=== PATIENT | female | born 1955 | race Caucasian/White ===

== ENCOUNTER 2023-07-03 07:40 | Observation (INO) ==
[2023-07-03] MEDS ORDERED: ASPIRIN CHEWABLE PO STA (07:46)
[2023-07-03] MEDS ORDERED: MYLANTA SUSP PO ONE (07:50)
[2023-07-03] MEDS ORDERED: MORPHINE 2 MG/ML SYRINGE IVP ONE (07:50)
[2023-07-03] MEDS ORDERED: PROTONIX IV IVP STA (07:50)
[2023-07-03] MEDS ORDERED: HYDRALAZINE HCL IVP STA (07:52)
[2023-07-03] MEDS ORDERED: ZOFRAN 4 MG/2 ML IVP ONE (08:01)
[2023-07-03 08:05] LABS: BASOPHILS % (AUTO) 0.3 % (0.0-3.0); EOSINOPHILS # (AUTO) 0.1 K/ul (0.0-0.7); HEMATOCRIT 36.4 % (37.0-47.0); HEMOGLOBIN 10.9 g/dl (12.0-16.0); IMMATURE GRANULOCYTE % (AUTO) 0.3 % (0.0-5.0); LYMPHOCYTES # (AUTO) 0.9 K/uL (0.60-3.4); LYMPHOCYTES % (AUTO) 14.6 (10.0-50.0); MEAN CORPUSCULAR HEMOGLOBIN 25.5 pg (27.0-31.0); MEAN CORPUSCULAR HGB CONC 29.9 (31.8-35.4); MEAN CORPUSCULAR VOLUME 85.2 fl (81.0-99.0); MONOCYTES # (AUTO) 0.5 K/uL (0.4-2.0); MONOCYTES % (AUTO) 7.7 (0-10); NEUTROPHILS # (AUTO) 4.8 K/ul (2.0-6.9); NEUTROPHILS % (AUTO) 76.1 % (42.2-75.2); PLATELET COUNT 376 10^3/uL (140-440); RDW COEFFICIENT OF VARIATION 14.6 % (11.6-14.8); RED BLOOD COUNT 4.27 10^6/ul (4.20-5.40); WHITE BLOOD COUNT 6.24 K/ul (4.6-10.2)
--- NOTE | 2023-07-03 08:06 | DI ---
EXAM: SINGLE, PORTABLE AP VIEW(S) CHEST. HISTORY: Chest pain. COMPARISON: 05/12/2023 TECHNIQUE: Single, portable AP view(s) of the chest. FINDINGS: Lungs: The lung voulmes are normal.The lungs are clear without consolidation or effusion. Calcified g ranuloma in the left base. There is no pneumothorax. Cardiovascular: The heart size and pulmonary vasculature is normal.. The aorta is unremarkable. Ira/Mediastinum: Normal. Osseous structures. Normal for age. IMPRESSION: No acute pulmonary disease.
--- NOTE | 2023-07-03 08:06 | ED.PDOC ---
General ED Provider: Dr. EDMOND LEWIS MD Chief Complaint: Chest Pain Stated Complaint: chest pain Time Seen by Provider: 07/03/23 07:45 Information Source: Patient and Family Primary Care Provider: BRITTANI VINCENT Nursing and Triage Documentation Reviewed and Agree: Yes Review of Systems Review Of Systems Constitutional: Reports No symptoms GI: Reports Abdominal pain and Nausea All Other Systems: Reviewed and Negative PFSH Social History Smoking and tobacco status: Never smoker Female Reproductive History Menstrual Hx Hysterectomy: No Hx Tubal Ligation: No Physical Exam Physical Exam Appearance: Reports Well-appearing Ill-appearing: None Pain Distress: Mild Eyes: Reports GABE ENT: Reports Ears normal, Nose normal and Oropharynx normal Neck: Supple Respiratory: Reports Airway patent, Breath sounds clear and Breath sounds equal Cardiovascular: Reports RRR, Pulses normal and No rub GI/: Reports Soft, No masses, Bowel sounds normal and Tender (epigastric) Musculoskeletal: Reports Normal strength and ROM intact Skin: Reports Warm, Dry and Normal color Neurological: Reports Sensation intact, Motor intact and Cranial nerves intact Psychiatric: Reports Affect appropriate Interpretation EKG Interpretation EKG Interpretation By: ED Physician Time of EKG #1: 07:39 Rate: Normal Rhythm: Sinus Ectopy: PACs [place]: NL ST Segment: Normal Interpretation: No signs of acute ischemia Critical Care Note Critical Care Note Total Critical Care Time (mins): 0 Course Course 07/03/23 07:51 07/03/23 07:51 Orders, Labs, Meds: Lab Review 07/03/23 07:51 WBC 6.24 RBC 4.27 Hgb 10.9 L Hct 36.4 L MCV 85.2 MCH 25.5 L MCHC 29.9 L RDW Coeff of Chi 14.6 Plt Count 376 Immature Gran % (Auto) 0.3 Neut % (Auto) 76.1 H Lymph % (Auto) 14.6 Mora % (Auto) 7.7 Eos % (Auto) 1.0 Baso % (Auto) 0.3 Neut # (Auto) 4.8 Lymph # (Auto) 0.9 Mora # (Auto) 0.5 Eos # (Auto) 0.1 Baso # (Auto) 0.0 Immature Gran # (Auto) 0.0 Sodium 139.6 Potassium 3.80 Chloride 106.4 Carbon Dioxide 28.9 Anion Gap 8.10 BUN 12.3 Creatinine 0.57 L Estimated GFR (MDRD) 105.00 BUN/Creatinine Ratio 21.57 Glucose 139.4 H Calcium 9.19 Total Bilirubin 1.23 AST 1127.3 H ALT 627.1 H Alkaline Phosphatase 576.2 H Total Creatine Kinase 49.9 Troponin I < 0.012 Total Protein 7.99 Albumin 4.28 Globulin 3.71 Albumin/Globulin Ratio 1.15 Lipase 128.3 Acetaminophen < 10.0 L SARS CoV-2 RNA Rapid CIRA Negative Orders Category Date Time Status ADMIT OBSERVATION [PLACE PATIENT OBSERVATION] .TO ADMISSION 07/03/23 10:55 Ordered MEDSURG (NON-MONITORED BED) EKG-(ED ONLY) Stat CARDIO 07/03/23 07:46 Completed ACETAMINOPHEN Stat LAB 07/03/23 07:51 Completed CBC W/ AUTO DIFF Stat LAB 07/03/23 07:51 Completed COMPREHENSIVE METABOLIC PANEL Stat LAB 07/03/23 07:51 Completed COVID [SARS COV-2 RNA RAPID CIRA] Stat LAB 07/03/23 07:51 Completed CREATINE KINASE Stat LAB 07/03/23 07:51 Completed HEPATITIS PANEL, ACUTE Stat LAB 07/03/23 08:41 Received LIPASE Stat LAB 07/03/23 07:51 Completed TROPONIN I Stat LAB 07/03/23 07:51 Completed Aspirin [Aspirin Chewable] Meds 07/03/23 07:46 Discontinued 324 mg PO ONCE STA Hydralazine HCl Meds 07/03/23 07:52 Discontinued 10 mg IVP ONCE STA Mag Hydrox/Al Hydrox/Simeth [Mylanta Susp] Meds 07/03/23 07:50 Discontinued 30 ml PO ONCE ONE Metoclopramide HCl [Reglan] Meds 07/03/23 08:16 Discontinued 10 mg IVP ONCE STA Morphine Sulfate [Morphine 2 mg/ml Syringe] Meds 07/03/23 07:50 Discontinued 2 mg IVP ONCE ONE Ondansetron HCl/Pf [Zofran 4 mg/2 ml] Meds 07/03/23 08:01 Discontinued 4 mg IVP ONCE ONE Pantoprazole Sodium [Protonix IV] Meds 07/03/23 07:50 Discontinued 40 mg IVP ONCE STA Sodium Chloride 0.9% [Sodium Chloride] 1,000 ml Meds 07/03/23 10:45 Active IV BOLUS CHEST, 1V AP ONLY Stat RADS 07/03/23 07:[address] ABDOMEN/PELVIS WO CONTRAST Stat RADS 07/03/23 08:30 Completed Medications Generic Name Dose Route Start Last Admin Trade Name Freq PRN Reason Stop Dose Admin Sodium Chloride 1,000 mls @ 1,000 mls/hr 07/03/23 10:45 07/03/23 10:49 Sodium Chloride IV 07/03/23 11:44 1,000 mls/hr BOLUS STA Administration Discontinued Medications Generic Name Dose Route Start Last Admin Trade Name Freq PRN Reason Stop Dose Admin Al Hydroxide/Mg Hydroxide 30 ml 07/03/23 07:50 07/03/23 07:57 Mag Hydrox/Al Hydrox/Simeth 30 Ml Cup PO 07/03/23 07:51 30 ml ONCE ONE Administration Aspirin 324 mg 07/03/23 07:46 07/03/23 07:57 Aspirin 81 Mg Tab.Chew PO 07/03/23 07:47 324 mg ONCE STA Administration Hydralazine HCl 10 mg 07/03/23 07:52 07/03/23 07:58 Hydralazine Hcl 20 Mg/Ml Sdv IVP 07/03/23 07:53 10 mg ONCE STA Administration Metoclopramide HCl 10 mg 07/03/23 08:16 07/03/23 08:21 Metoclopramide Hcl 10 Mg/2 Ml IVP 07/03/23 08:17 10 mg ONCE STA Administration Morphine Sulfate 2 mg 07/03/23 07:50 07/03/23 07:56 Morphine Sulfate 2 Mg/Ml Syringe IVP 07/03/23 07:51 2 mg ONCE ONE Administration Ondansetron HCl 4 mg 07/03/23 08:01 07/03/23 08:04 Ondansetron Hcl/Pf 4 Mg/2 Ml Sdv IVP 07/03/23 08:02 4 mg ONCE ONE Administration Pantoprazole Sodium 40 mg 07/03/23 07:50 07/03/23 07:58 Pantoprazole Sodium 40 Mg Vial IVP 07/03/23 07:51 40 mg ONCE STA Administration Vital Signs: Temp Pulse Resp BP Pulse Ox 07/03/23 07:41 97.2 F L 81 18 177/91 H 98 67 years old female past medical history of osteoarthritis coming to the ER for chest pain nausea and dry heaving. Patient woke up this morning feeling some chest pain into the lower sternal area 9/out of 10 nonradiating associated with some nausea and dry heaving. EKG did not show any signs of acute ischemia troponin is normal chest x-ray did not show any acute findings labs showed AST of 1127 and ALT of 627 alkaline phosphatase 576 T. bili within normal limits lipase within normal limits patient admits to taking about 4 g of Tylenol a day for few days and she cut down on it on the last couple of days for her osteoarthritis. Patient does not drink alcohol. Consulted with web specialist Dr. Aguirre from [facility] and recommended that the patient is less likely to have cholangitis given the normal total bili and normal white cell count. CAT scan did not show any acute findings except for some sigmoid diverticulosis with possible diverticulitis but patient does not have any lower GI symptoms no diarrhea and no leukocytosis. Spoke with the hospitalist Vincenzo discussed the patient case with her and she accepted the patient to be admitted to our services for some IV hydration and monitoring liver function test to make sure it is trending down before discharging her tomorrow. ADRIANNE Risk Score ADRIANNE Risk Score: Risk Score Odds of by 30D 0 0.1 (0.1-0.2) 1 0.3 (0.2-0.3) 2 0.4 (0.3-0.5) 3 0.7 (0.6-0.9) 4 1.2 (1.0-1.5) 5 2.2 (1.9-2.6) 6 3.0 (2.5-3.6) 7 4.8 (3.8-6.1) Discharge Plan Discharge Patient Disposition: ADMITTED INPATIENT Discharge Problem: Transaminitis Did you review [place] HEARING AID CONSULTANT for ALL controlled substances?: Not Applicable ED Provider: EDMOND LEWIS Condition: Good Physician Progress Note: []
[2023-07-03 08:12] LABS: ALANINE AMINOTRANSFERASE 627.1 U/L (0-35); ALBUMIN 4.28 g/dL (3.5-5.0); ALKALINE PHOSPHATASE 576.2 U/L (53-141); BILIRUBIN,TOTAL 1.23 mg/dL (0.2-1.3); BLOOD UREA NITROGEN 12.3 mg/dL (7-17); CALCIUM 9.19 mg/dL (8.4-10.2); CARBON DIOXIDE 28.9 mmol/L (22-30.0); CHLORIDE 106.4 mmol/L (98-107); CREATINE KINASE 49.9 U/L (30-135); CREATININE 0.57 mg/dL (0.60-1.30); GLUCOSE 139.4 mg/dL (74-106); SODIUM 139.6 mmol/L (134.5-145); TOTAL PROTEIN 7.99 g/dL (6.3-8.2)
[2023-07-03 08:14] LABS: SARS COV-2 RNA RAPID NAAT NEGATIVE (NEGATIVE)
[2023-07-03] MEDS ORDERED: REGLAN IVP STA (08:16)
[2023-07-03 08:24] LABS: ASPARTATE AMINO TRANSFERASE 1127.3 U/L (14-36)
[2023-07-03 08:25] LABS: TROPONIN I < 0.012 ng/ml (0.0000-0.120)
--- NOTE | 2023-07-03 09:12 | CT ---
EXAM: CT ABDOMEN PELVIS WITHOUT INTRAVENOUS CONTRAST 07/03/2023. SAGITTAL AND CORONAL REFORMATTED IM AGES OBTAINED HISTORY: Abdominal pain COMPARISON: 05/12/2023 FINDINGS: Stable 11 mm right lower lobe nodule and 12 mm left lower lobe nodule. The left side nodul e could represent lipoma or hamartoma. Follow-up recommended. Stable low density lesions within the right lobe of liver likely due to benign cyst. The liver shows no acute abnormality. The gallbladder has been removed. The adrenal glands and kidneys show no acu te process. The previously described bilateral ureteral stones have passed. No hydronephrosis. Sma ll hiatal hernia. The spleen and pancreas show no acute abnormality. There is no bowel obstruction. Normal appendix. Stranding along the anterior margin of the sigmoid colon as seen on image 139. This may represent a mild acute uncomplicated diverticulitis. Multiple colonic diverticuli. No free air, free fluid or abscess. IMPRESSION: 1. Stable bilateral lower lobe noncalcified pulmonary nodules. Outpatient CT followup is advised. Left-sided nodule could represent lipoma or hamartoma. 2. Status post cholecystectomy. 3. The previously described ureteral stones have passed. No hydronephrosis. 4. Stranding along the anterior margin of the sigmoid colon. Multiple colonic diverticuli. This li faith represents a mild acute uncomplicated diverticulitis. 5. No free air, free fluid or abscess. 6. Small hiatal hernia. All CT scans are performed using dose optimization techniques as appropriate to the performed exam an d include at least one of the following: Automated exposure control, adjustment of the mA and/or kV according t o size, and the use of iterative reconstruction technique.
[2023-07-03] MEDS ORDERED: SODIUM CHLORIDE 1,000 ML IV STA (10:45)
[2023-07-03] MEDS ORDERED: ZOFRAN 4 MG/2 ML IVP PRN (11:10)
[2023-07-03] MEDS ORDERED: REGLAN IVP PRN (11:10)
[2023-07-03] MEDS: DEXTROSE 5%-1/2NS IV SOLUTION 1,000 ML IV SCH (12:07)
[2023-07-03 12:16] VITALS: BMI 30.6
--- NOTE | 2023-07-03 12:16 | PCM ---
Date of Service Date Seen by Provider: 07/03/23 Time Seen by Provider: 11:45 Admit Day/Time Admission Date: 07/03/23 Admission Time: 10:45 Reason for Admission Chief Complaint: TRANSAMINITIS Hospital Provider Hospital Provider: QUANG ROMAN, [facility] Primary Care Physician Primary Care Physician: BRITTANI VINCENT Consultants Discussed With Consultants Discussed With: GI @ [facility] by Dr. Nevarez. No need for transfer. Recommended ultrasound and IVF. History of Present Illness History of Present Illness: 67 yo female presented to the ER with epigastric pain, nausea, and dry heaves. Patient has history of hiatal hernia repair, diverticulosis, and gastroparesis. States that she began feeling this way yesterday and has continued to worsen until this morning. Has not been able to eat or drink anything. Describes the epigastric pain as a burning. Denies any radiation to neck or other extremities. Denies any fever, chills, abdominal pain, urinary symptoms, or blood in vomit or stool. Follows with a GI at [facility]. Patient was found to have elevated liver enzymes in the past. Reports that she was told she had to have had a viral illness and enzymes returned to normal limits. Denies any alcohol use. Denies any excessive tylenol intake. Case Discussed With Case Discussed With: Patient's case was discussed with the ER Physicians, Dr. Nevarez [facility] Medical History Osteoarthritis M19.90 - Unspecified osteoarthritis, unspecified site (ICD-10) Ruptured thoracic disc M51.24 - Other intervertebral disc displacement, thoracic region (ICD-10) Kidney stones N20.0 - Calculus of kidney (ICD-10) Hypertension I10 - Essential (primary) hypertension (ICD-10) Hyperthyroidism E05.90 - Thyrotoxicosis, unspecified without thyrotoxic crisis or storm (ICD-10) Left wrist fracture S62.102A - Fracture of unspecified carpal bone, left wrist, initial encounter for closed fracture (ICD-10) Surgical History H/O partial thyroidectomy E89.0 - Postprocedural hypothyroidism (ICD-10) H/O tubal ligation Z98.51 - Tubal ligation status (ICD-10) Hx of cholecystectomy Z90.49 - Acquired absence of other specified parts of digestive tract (ICD- 10) History of surgery on left wrist Z98.890 - Other specified postprocedural states (ICD-10) History of Donal fundoplication Z98.890 - Other specified postprocedural states (ICD-10) Family History FATHER Lung cancer Mother Pancreatic cancer Unknown Lupus (systemic lupus erythematosus) Social History Smoking and tobacco status: Never smoker Alcohol intake: never Substance use type: marijuana Counseling given: No (Medical Marijuana Card) Allergies Allergies Allergy/AdvReac Type Severity Reaction Status Date / Time No Known Allergies Allergy Verified 07/03/23 07:57 Current Medications Home Medications bupropion HCl 300 mg 24 hr tablet, extended release 300 mg PO DAILY 07/03/23 [History Confirmed 07/03/23 Last Taken 07/02/23] duloxetine 60 mg capsule,delayed release 60 mg PO DAILY 07/03/23 [History Confirmed 07/03/23 Last Taken 07/02/23] ergocalciferol (vitamin D2) 400 unit capsule 10 mcg PO DAILY 07/03/23 [History Confirmed 07/03/23 Last Taken Unknown] irbesartan 300 mg tablet 300 mg PO DAILY 07/03/23 [History Confirmed 07/03/23 Last Taken 07/02/23] levothyroxine 88 mcg tablet (Synthroid) 88 mcg PO DAILY 07/03/23 [History Confirmed 07/03/23 Last Taken 07/02/23] pantoprazole 40 mg tablet,delayed release 40 mg PO DAILY 07/03/23 [History Confirmed 07/03/23 Last Taken 07/02/23] Home Piperacillin Sod/Tazobactam (Sod 3.375 gm/ Sodium Chloride) 100 mls @ 200 mls/hr IV Q6HR CHIVO Stop: 07/06/23 11:59 Dextrose/Sodium Chloride (Dextrose 5%-1/2ns Iv Solution) 1,000 mls @ 75 mls/hr IV .[id number] CHIVO Last Admin: 07/03/23 12:07 Dose: 75 mls/hr Metoclopramide HCl (Metoclopramide Hcl 10 Mg/2 Ml) 5 mg IVP Q6H PRN PRN Reason: Nausea / Vomiting Ondansetron HCl (Ondansetron Hcl/Pf 4 Mg/2 Ml Sdv) 4 mg IVP Q6H PRN PRN Reason: Nausea / Vomiting Discontinued Medications Al Hydroxide/Mg Hydroxide (Mag Hydrox/Al Hydrox/Simeth 30 Ml Cup) 30 ml PO ONCE ONE Stop: 07/03/23 07:51 Last Admin: 07/03/23 07:57 Dose: 30 ml Aspirin (Aspirin 81 Mg Tab.Chew) 324 mg PO ONCE STA Stop: 07/03/23 07:47 Last Admin: 07/03/23 07:57 Dose: 324 mg Hydralazine HCl (Hydralazine Hcl 20 Mg/Ml Sdv) 10 mg IVP ONCE STA Stop: 07/03/23 07:53 Last Admin: 07/03/23 07:58 Dose: 10 mg Sodium Chloride (Sodium Chloride) 1,000 mls @ 1,000 mls/hr IV BOLUS STA Stop: 07/03/23 11:44 Last Admin: 07/03/23 10:49 Dose: 1,000 mls/hr Metoclopramide HCl (Metoclopramide Hcl 10 Mg/2 Ml) 10 mg IVP ONCE STA Stop: 07/03/23 08:17 Last Admin: 07/03/23 08:21 Dose: 10 mg Morphine Sulfate (Morphine Sulfate 2 Mg/Ml Syringe) 2 mg IVP ONCE ONE Stop: 07/03/23 07:51 Last Admin: 07/03/23 07:56 Dose: 2 mg Ondansetron HCl (Ondansetron Hcl/Pf 4 Mg/2 Ml Sdv) 4 mg IVP ONCE ONE Stop: 07/03/23 08:02 Last Admin: 07/03/23 08:04 Dose: 4 mg Pantoprazole Sodium (Pantoprazole Sodium 40 Mg Vial) 40 mg IVP ONCE STA Stop: 07/03/23 07:51 Last Admin: 07/03/23 07:58 Dose: 40 mg Review of Systems Constitutional: Reports Loss of appetite Head: Reports Normocephalic and Atraumatic Eyes: Reports No symptoms Ears: Reports No symptoms Nose: Reports No symptoms Mouth: Reports No symptoms Throat: Reports No symptoms Cardiovascular: Reports No symptoms Respiratory: Reports No symptoms Gastrointestinal: Reports Nausea, Vomiting, Heartburn, Reflux and Other (epigastric pain) Genitourinary: Reports No Symptoms Musculoskeletal: Reports No symptoms Endocrine: Reports No symptoms Hematology: Reports No symptoms Immunology: Reports No symptoms Neurological: Reports No symptoms Psychiatric: Reports No symptoms Physical examination Most Recent Vital Signs: Most Recent Vital Signs Temperature 97.2 F L 07/03/23 07:41 Temperature Source Infrared 07/03/23 07:41 Pulse Rate 70 07/03/23 11:51 Respiratory Rate 15 07/03/23 11:51 Blood Pressure 122/71 07/03/23 11:51 O2 Sat by Pulse Oximetry 98 07/03/23 07:41 Height 5 ft 4 in 07/03/23 07:41 Weight 177 lb 4.026 oz 07/03/23 07:41 Appearance: Positive No Apparent Distress and Alert and Oriented x3 Skin: Positive Warm, Good Turgor and Good Color HEENT: Positive Normocephalic and PERRLA Neck: Positive Supple and Midline Trachea Chest/Lungs: Positive Symmetrical With Equal Breath Sounds, Clear to Auscultation Bilaterally and Good Air Movement all 4 Lung Michael Heart: Positive RRR and Pulses Normal GI/: Positive Soft, Nontender, Bowel Sounds Normal, No Distention and No Organomegaly Musculoskeletal: Positive Normal Gait and Station Extremities: Positive Intact Peripheral Pulses, Stable Joints Without Laxity and Good ROM in All Joints Neurological: Positive Sensation Intact, Motor intact, Reflexes Intact, Alert, Oriented and Muscle Strength 5/5 in Upper and Lower Extremities Bilaterally Psychiatric: Positive Oriented x4, Appropriate Mood, Appropriate Affect and Intact Memory Labs This Visit Labs This Visit: Labs This Visit 07/03/23 07/03/23 07:51 11:26 WBC 6.24 RBC 4.27 Hgb 10.9 L Hct 36.4 L MCV 85.2 MCH 25.5 L MCHC 29.9 L RDW Coeff of Chi 14.6 Plt Count 376 Immature Gran % (Auto) 0.3 Neut % (Auto) 76.1 H Lymph % (Auto) 14.6 Hanson % (Auto) 7.7 Eos % (Auto) 1.0 Baso % (Auto) 0.3 Neut # (Auto) 4.8 Lymph # (Auto) 0.9 Hanson # (Auto) 0.5 Eos # (Auto) 0.1 Baso # (Auto) 0.0 Immature Gran # (Auto) 0.0 Sodium 139.6 Potassium 3.80 Chloride 106.4 Carbon Dioxide 28.9 Anion Gap 8.10 BUN 12.3 Creatinine 0.57 L Estimated GFR (MDRD) 105.00 BUN/Creatinine Ratio 21.57 Glucose 139.4 H Calcium 9.19 Total Bilirubin 1.23 AST 1127.3 H ALT 627.1 H Alkaline Phosphatase 576.2 H Total Creatine Kinase 49.9 Troponin I < 0.012 < 0.012 Total Protein 7.99 Albumin 4.28 Globulin 3.71 Albumin/Globulin Ratio 1.15 Lipase 128.3 Acetaminophen < 10.0 L SARS CoV-2 RNA Rapid CIRA Negative Imaging Imaging: EXAM: CT ABDOMEN PELVIS WITHOUT INTRAVENOUS CONTRAST 07/03/2023. SAGITTAL AND CORONAL REFORMATTED IMAGES OBTAINED HISTORY: Abdominal pain COMPARISON: 05/12/2023 FINDINGS: Stable 11 mm right lower lobe nodule and 12 mm left lower lobe nodule. The left side nodule could represent lipoma or hamartoma. Follow-up recommended. Stable low density lesions within the right lobe of liver likely due to benign cyst. The liver shows no acute abnormality. The gallbladder has been removed. The adrenal glands and kidneys show no acute process. The previously described bilateral ureteral stones have passed. No hydronephrosis. Small hiatal hernia. The spleen and pancreas show no acute abnormality. There is no bowel obstruction. Normal appendix. Stranding along the anterior margin of the sigmoid colon as seen on image 139. This may represent a mild acute uncomplicated diverticulitis. Multiple colonic diverticuli. No free air, free fluid or abscess. IMPRESSION: 1. Stable bilateral lower lobe noncalcified pulmonary nodules. Outpatient CT followup is advised. Left-sided nodule could represent lipoma or hamartoma. 2. Status post cholecystectomy. 3. The previously described ureteral stones have passed. No hydronephrosis. 4. Stranding along the anterior margin of the sigmoid colon. Multiple colonic diverticuli. This likely represents a mild acute uncomplicated diverticulitis. 5. No free air, free fluid or abscess. 6. Small hiatal hernia. Review Statement Review Statement: I have independently reviewed and interpreted the labs/EKGs/imaging that were ordered by the ER provider. I have reviewed all outside records that are available currently in our EMR including imaging/notes/labs from previous visits. Plan Plan: 1. Diverticulitis - NPO - ice chips only - will advance as tolerated, D5 1/2 NS@75mL/hr, accuchecks Q6H while NPO, zosyn Q6H IVPB, diet education on discharge 2. Acute Transaminitis - hepatitis panel ordered, US in am, repeat cmp in am 3. Chest/Epigastric Pain - serial troponins negative, no acute findings on EKG, likely due to dry heaving 4. Hypertension - chronic, continue home medications DVT Prophylaxis: Up ad kiana Time Spent: Greater than 80 minutes spent with patient, 50% of the time spent with this patient was devoted to counseling and coordination of care. [facility]in minutes spent discussing advance care planning. Disposition: Admit to: Med/Surg Observation DNR Discussed Plan of Care with Dr. Madelyn Erazo. Medications Medication Orders: Medications Ordered Category Date Time Status Dextrose 5 %-0.45 % NaCl [Dextrose 5%-1/2Ns IV Solution Meds 07/03/23 11:30 Active ] 1,000 ml IV 75 mls/hr Metoclopramide HCl [Reglan] Meds 07/03/23 11:10 Active 5 mg IVP Q6H PRN Ondansetron HCl/Pf [Zofran 4 mg/2 ml] Meds 07/03/23 11:10 Active 4 mg IVP Q6H PRN Piperacillin Sodium/Tazobactam [Zosyn 3.375 gm] 3.375 Meds 07/03/23 12:00 Active gm 0.9 % Sodium Chloride [Sodium Chloride 100Ml] 100 ml IV Q6HR
[2023-07-03] MEDS: ZOSYN 3.375 GM 3.375 GM in SODIUM CHLORIDE 100ML 100 ML IV SCH ×3 (13:42→23:53)
[2023-07-04] MEDS: DEXTROSE 5%-1/2NS IV SOLUTION 1,000 ML IV SCH (00:47)
[2023-07-04] MEDS: ZOSYN 3.375 GM 3.375 GM in SODIUM CHLORIDE 100ML 100 ML IV SCH (05:10)
[2023-07-04] MEDS ORDERED: TORADOL IVP ONE (05:27)
[2023-07-04 05:29] LABS: BASOPHILS % (AUTO) 0.6 % (0.0-3.0); EOSINOPHILS # (AUTO) 0.3 K/ul (0.0-0.7); EOSINOPHILS % (AUTO) 4.5 % (0.0-7.0); HEMOGLOBIN 10.1 g/dl (12.0-16.0); IMMATURE GRANULOCYTE % (AUTO) 0.4 % (0.0-5.0); LYMPHOCYTES # (AUTO) 1.2 K/uL (0.60-3.4); LYMPHOCYTES % (AUTO) 17.9 (10.0-50.0); MEAN CORPUSCULAR HEMOGLOBIN 25.6 pg (27.0-31.0); MEAN CORPUSCULAR HGB CONC 29.7 (31.8-35.4); MEAN CORPUSCULAR VOLUME 86.1 fl (81.0-99.0); MONOCYTES # (AUTO) 0.5 K/uL (0.4-2.0); NEUTROPHILS # (AUTO) 4.8 K/ul (2.0-6.9); NEUTROPHILS % (AUTO) 69.6 % (42.2-75.2); PLATELET COUNT 343 10^3/uL (140-440); RDW COEFFICIENT OF VARIATION 14.9 % (11.6-14.8); RED BLOOD COUNT 3.95 10^6/ul (4.20-5.40); WHITE BLOOD COUNT 6.89 K/ul (4.6-10.2)
[2023-07-04] MEDS ORDERED: CELEBREX PO SCH ×2 (05:30→09:00)
[2023-07-04 05:43] VITALS: BP 158/82; PULSE 77; RESP 19; TEMP 98.1
[2023-07-04 05:48] LABS: ALBUMIN 3.87 g/dL (3.5-5.0); ALKALINE PHOSPHATASE 557.6 U/L (53-141); BILIRUBIN,TOTAL 1.02 mg/dL (0.2-1.3); BLOOD UREA NITROGEN 7.1 mg/dL (7-17); CALCIUM 8.64 mg/dL (8.4-10.2); CHLORIDE 108.7 mmol/L (98-107); CREATININE 0.74 mg/dL (0.60-1.30); GLUCOSE 127.2 mg/dL (74-106); POTASSIUM 3.67 mmol/L (3.5-5.1); SODIUM 138.8 mmol/L (134.5-145); TOTAL PROTEIN 7.22 g/dL (6.3-8.2)
[2023-07-04 05:55] LABS: ALANINE AMINOTRANSFERASE 1086.2 U/L (0-35); ASPARTATE AMINO TRANSFERASE 882.2 U/L (14-36)
--- NOTE | 2023-07-04 08:58 | US ---
EXAM: ULTRASOUND ABDOMEN COMPLETE HISTORY: Abdominal pain. TECHNIQUE: Sonography of the abdomen and retroperitoneum was performed. Color Doppler images of the main portal vein were also obtained. Images were obtained and stored in a permanent archive. COMPARISON: None. FINDINGS: Liver: Normal size and normal echogenicity. Simple cyst measuring up to 1 cm right lobe. Main portal vein: Normal antegrade flow. Biliary: Common bile duct measures 4 mm. The gallbladder is absent Spleen: Normal in size and no focal lesion. Right Kidney: Measures cm. No hydronephrosis. No lesions. No calculus. Left Kidney: Measures cm. No hydronephrosis. No lesions. No calculus. IVC: Patent on color Doppler. No abnormality on clinton scale imaging. Aorta: No aneurysmal dilatation in visualized portions. Other: No ascites. IMPRESSION: No acute radiographic process.
[2023-07-04] MEDS ORDERED: AVAPRO PO SCH (09:00)
[2023-07-04] MEDS ORDERED: PROTONIX PO SCH (09:00)
[2023-07-04] MEDS ORDERED: SYNTHROID PO SCH (09:00)
[2023-07-04] MEDS ORDERED: CYMBALTA PO SCH (09:00)
[2023-07-04] MEDS ORDERED: WELLBUTRIN XL PO SCH (09:00)
--- NOTE | 2023-07-04 11:47 | DCSUM ---
Admission Date Admission Date: 07/03/23 Discharge Date Discharge Date: 07/04/23 Admission Diagnosis Admission Diagnosis: 1. Diverticulitis 2. Acute Transaminitis 3. Chest/Epigastric Pain 4. Hypertension Discharge Diagnosis Discharge Diagnosis: 1. Acute transaminitis 2. Acute diverticulitis, mild - ruled out, no symptoms, no abx warranted 3. Chest/epigastric pain - resolved 4. Hypertension - Chronic, stable 5. Anxiety - Chronic, stable 6. GERD - Chronic stable 7. Hypothyroidism - Chronic, stable 8. Osteoarthritis - Chronic Hospital Provider Hospital Provider: SARAH MOY [facility]-C, [facility] Primary Care Physician Primary Care Physician: BRITTANI VINCENT Summary of History and Physical Summary of History and Physical: 67 yo female presented to the ER with epigastric pain, nausea, and dry heaves. Patient has history of hiatal hernia repair, diverticulosis, and gastroparesis. States that she began feeling this way yesterday and has continued to worsen until this morning. Has not been able to eat or drink anything. Describes the epigastric pain as a burning. Denies any radiation to neck or other extremities. Denies any fever, chills, abdominal pain, urinary symptoms, or blood in vomit or stool. Follows with a GI at [facility]. Patient was found to have elevated liver enzymes in the past. Reports that she was told she had to have had a viral illness and enzymes returned to normal limits. Denies any alcohol use. Denies any excessive tylenol intake but states she's been taking tylenol arthritis 650 mg 2 tabs TID for last few days due to being up more for giving. ER provider consulted with GI Dr. Aguirre from [facility]. He did not feel this was cholangitis given the normal total bili and wbc count. CT A/p showed possible mild sigmoid diverticulitis. She was given zosyn. Hospital Course Subjective: Patient was made npo initially. She felt better and was progressed to clears. No nausea. No RUQ or LLQ pain. No changes in BMs. WBC count normal. She was initially treated with zosyn but this was stopped due to no symptoms. Patient's epigastric pain resolved. She was able to tolerate diet. Liver enzymes still elevated. US showed no acute findings. Hep panel pending. Bili still normal. Patient afebrile. She is asking to go home today, states she is feeling much better. Discussed her liver enzymes still elevated, could be due to increased tylenol use this week. Encouraged cessation of tylenol, will give tramadol for prn breakthrough pain if she needs something. Encouraged close f/u with pcp for repeat enzyme levels this week. F/u with GI as well. Pt agrees to plan of care. Appearance: Pleasant, No Apparent Distress and Alert HEENT: MMM CVS: No Murmur Abdomen: Soft, Non-Tender, No Distention and Other (No RUQ or LLQ pain, no rebound tenderness ) Respiratory: No Dyspnea Extremities: No Edema Vital Signs: Most Recent Vital Signs Temperature 98.1 F 07/04/23 05:42 Temperature Source Oral 07/04/23 05:42 Temperature Source Infrared 07/03/23 07:41 Pulse Rate 77 07/04/23 05:42 Respiratory Rate 19 07/04/23 05:42 Blood Pressure 158/82 H 07/04/23 05:42 Blood Pressure Mean 107 07/04/23 05:42 Blood Pressure Left Arm 142/77 07/03/23 11:43 Blood Pressure Location Right Arm 07/04/23 05:42 Blood Pressure Position Sitting 07/04/23 05:42 O2 Sat by Pulse Oximetry 97 07/04/23 05:42 Oxygen Delivery Method Room Air 07/04/23 11:00 Height 5 ft 4 in 07/04/23 07:43 Weight 178 lb 4 oz 07/04/23 07:43 Imaging: EXAM: CT ABDOMEN PELVIS WITHOUT INTRAVENOUS CONTRAST 07/03/2023. SAGITTAL AND CORONAL REFORMATTED IMAGES OBTAINED HISTORY: Abdominal pain COMPARISON: 05/12/2023 FINDINGS: Stable 11 mm right lower lobe nodule and 12 mm left lower lobe nodule. The left side nodule could represent lipoma or hamartoma. Follow-up recommended. Stable low density lesions within the right lobe of liver likely due to benign cyst. The liver shows no acute abnormality. The gallbladder has been removed. The adrenal glands and kidneys show no acute process. The previously described bilateral ureteral stones have passed. No hydronephrosis. Small hiatal hernia. The spleen and pancreas show no acute abnormality. There is no bowel obstruction. Normal appendix. Stranding along the anterior margin of the sigmoid colon as seen on image 139. This may represent a mild acute uncomplicated diverticulitis. Multiple colonic diverticuli. No free air, free fluid or abscess. IMPRESSION: 1. Stable bilateral lower lobe noncalcified pulmonary nodules. Outpatient CT followup is advised. Left-sided nodule could represent lipoma or hamartoma. 2. Status post cholecystectomy. 3. The previously described ureteral stones have passed. No hydronephrosis. 4. Stranding along the anterior margin of the sigmoid colon. Multiple colonic diverticuli. This likely represents a mild acute uncomplicated diverticulitis. 5. No free air, free fluid or abscess. 6. Small hiatal hernia. EXAM: ULTRASOUND ABDOMEN COMPLETE HISTORY: Abdominal pain. TECHNIQUE: Sonography of the abdomen and retroperitoneum was performed. Color Doppler images of the main portal vein were also obtained. Images were obtained and stored in a permanent archive. COMPARISON: None. FINDINGS: Liver: Normal size and normal echogenicity. Simple cyst measuring up to 1 cm right lobe. Main portal vein: Normal antegrade flow. Biliary: Common bile duct measures 4 mm. The gallbladder is absent Spleen: Normal in size and no focal lesion. Right Kidney: Measures cm. No hydronephrosis. No lesions. No calculus. Left Kidney: Measures cm. No hydronephrosis. No lesions. No calculus. IVC: Patent on color Doppler. No abnormality on clinton scale imaging. Aorta: No aneurysmal dilatation in visualized portions. Other: No ascites. IMPRESSION: No acute radiographic process Lab Results Last 24 Hours: 07/04/23 07/03/23 05:12 11:26 WBC 6.89 RBC 3.95 L Hgb 10.1 L Hct 34.0 L MCV 86.1 MCH 25.6 L MCHC 29.7 L RDW Coeff of Chi 14.9 H Plt Count 343 Immature Gran % (Auto) 0.4 Neut % (Auto) 69.6 Lymph % (Auto) 17.9 Caroline % (Auto) 7.0 Eos % (Auto) 4.5 Baso % (Auto) 0.6 Neut # (Auto) 4.8 Lymph # (Auto) 1.2 Caroline # (Auto) 0.5 Eos # (Auto) 0.3 Baso # (Auto) 0.0 Immature Gran # (Auto) 0.0 Sodium 138.8 Potassium 3.67 Chloride 108.7 H Carbon Dioxide 30.0 Anion Gap 3.77 BUN 7.1 Creatinine 0.74 Estimated GFR (MDRD) 78.00 BUN/Creatinine Ratio 9.59 Glucose 127.2 H Calcium 8.64 Total Bilirubin 1.02 AST 882.2 H D ALT 1086.2 H D Alkaline Phosphatase 557.6 H Troponin I < 0.012 Total Protein 7.22 Albumin 3.87 Globulin 3.35 Albumin/Globulin Ratio 1.15 Discharge Instructions Discharge Planning: Discharge Planning > 40 minutes If patient is discharged with left ventricular systolic dysfunction: Discharged with a beta damir? [] If no, why not? [] Discharged with an kayla/arb? [] If no, why not? [] Discharge Medications: Medications at Discharge (Home Meds & RX) bupropion HCl 300 mg 24 hr tablet, extended release 300 mg PO DAILY 07/03/23 duloxetine 60 mg capsule,delayed release 60 mg PO DAILY 07/03/23 ergocalciferol (vitamin D2) 400 unit capsule 10 mcg PO DAILY 07/03/23 irbesartan 300 mg tablet 300 mg PO DAILY 07/03/23 levothyroxine 88 mcg tablet (Synthroid) 88 mcg PO DAILY 07/03/23 pantoprazole 40 mg tablet,delayed release 40 mg PO DAILY 07/03/23 celecoxib 200 mg capsule 200 mg PO Q24H 07/04/23 tramadol 50 mg tablet 50 mg PO Q8H PRN moderate pain (scale score 5-6) #10 tabs 07/04/23 Discharge Plan Discharge Discharge Orders: Discharge Patient (ONCE); Ordered 07/04/23 Ordered By: SARAH MOY Activity Restrictions/Additional Instructions: DISCHARGE TO HOME DX: ELEVATED LIVER ENZYMES F/U WITH PCP THIS WEEK RECOMMEND REPEAT LIVER ENZYMES AT PCP F/U F/U WITH GI WELL PROGRESS DIET TOLERATED ACTIVITY: TOLERATED STOP TYLENOL, TRY TRAMADOL FOR BREAK THROUGH PAIN IF NEEDED PHARMACY: [facility] Instructions: Acute Nausea and Vomiting (DC), Abdominal Pain (DC) Patient Disposition: HOME SELF-CARE Prescriptions: New tramadol 50 mg tablet 50 mg PO Q8H PRN (Reason: moderate pain (scale score 5-6)) Qty: 10 0RF Continued levothyroxine [Synthroid] 88 mcg tablet 88 mcg PO DAILY pantoprazole 40 mg tablet,delayed release (DR/EC) 40 mg PO DAILY irbesartan 300 mg tablet 300 mg PO DAILY bupropion HCl 300 mg tablet extended release 24 hr 300 mg PO DAILY duloxetine 60 mg capsule,delayed release(DR/EC) 60 mg PO DAILY ergocalciferol (vitamin D2) 400 unit capsule 10 mcg PO DAILY celecoxib 200 mg capsule 200 mg PO Q24H Did you review [place] CYCLE TOURING GUIDE for ALL controlled substances?: Yes Discussed opioids are addictive and Narcan is available by prescription or from pharmacy.: Yes Condition: Good Referrals: BRITTANI VINCENT [Primary Care Provider] - 07/06/23 10:50 am
[2023-07-06 07:55] LABS: HBsAgSCREEN Negative (Negative); HCV ANTIBODY Non Reactive (Non Reactive); HEP A AB, IgM Negative (Negative); HEP B CORE Ab, IgM Negative (Negative)
== END 2023-07-04 12:11 | disposition home or self-care (01) ==
LOC: ED 07:40 → MEDSURG B 07:40
PROVIDERS: ADMIT Hospitalist; ATTEND Physician Assistant
DX: Z79.899 Other long term (current) drug therapy; E03.9 Hypothyroidism, unspecified; M19.90 Unspecified osteoarthritis, unspecified site; R74.01 Elevation of levels of liver transaminase levels; R07.9 Chest pain, unspecified; K21.9 Gastro-esophageal reflux disease without esophagitis; R10.13 Epigastric pain; Z51.81 Encounter for therapeutic drug level monitoring; F41.9 Anxiety disorder, unspecified; K57.32 Diverticulitis of large intestine without perforation or abscess without bleeding; I10 Essential (primary) hypertension